=== PATIENT | male | born 1990 | race Caucasian/White ===

== ENCOUNTER 2016-08-15 06:41 | Emergency (ER) | payer OTHER, BC ==
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
[2016-08-15] MEDS ORDERED: IBUPROFEN 600 MG TAB As Ordered ONE (08:28)
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
== END 2016-08-15 08:40 | disposition home or self-care (01) ==
LOC: M ED 06:41
DX: S63.592A Other specified sprain of left wrist, initial encounter (principal); S00.33XA Contusion of nose, initial encounter; R93.6 Abnormal findings on diagnostic imaging of limbs; V47.5XXA Car driver injured in collision with fixed or stationary object in traffic accident, initial encounter; Y92.410 Unspecified street and highway as the place of occurrence of the external cause; F90.9 Attention-deficit hyperactivity disorder, unspecified type; M19.90 Unspecified osteoarthritis, unspecified site; Z79.899 Other long term (current) drug therapy

== ENCOUNTER 2016-09-06 08:52 | Emergency (ER) | payer BC, OTHER ==
[2016-09-06 11:07] LABS: BASO % 0.6 % (0.0-1.0); EOS # 0.1 K/mm3 (0.0-0.50); EOS % 2.1 % (0.0-3.0); LARGE UNSTAINED CELL # 0.2 K/mm3 (0.0-0.4); LARGE UNSTAINED CELL % 2.6 % (0.0-4.0); LYMPH # 1.1 K/mm3 (1.5-6.5); LYMPH % 19.7 % (24.0-44.0); MEAN CORPUSCULAR HEMOGLOBIN 31.5 pg (27.0-33.0); MEAN CORPUSCULAR HGB CONC 33.8 g/dl (32.0-36.5); MEAN CORPUSCULAR VOLUME 93.2 fl (80.0-96.0); MONO # 0.4 K/mm3 (0.0-0.8); MONO % 7.4 % (0.0-5.0); NEUTROPHILS # 3.9 K/mm3 (1.8-7.7); NEUTROPHILS % 67.6 % (36.0-66.0); PLATELET COUNT, AUTOMATED 282 k/mm3 (150-450); RED CELL DISTRIBUTION WIDTH 12.4 % (11.5-14.5); WHITE BLOOD COUNT 5.8 K/mm3 (4.0-10.0)
[2016-09-06 11:45] LABS: ALBUMIN 4.4 GM/DL (3.2-5.2); ALBUMIN/GLOBULIN RATIO 1.13 (1.00-1.93); ALKALINE PHOSPHATASE 81 U/L (45-117); ALT/SGPT 34 U/L (12-78); ANION GAP 5 MEQ/L (8-16); AST/SGOT 19 U/L (15-37); BILIRUBIN,DIRECT 0.1 MG/DL (0.0-0.2); BILIRUBIN,TOTAL 0.6 MG/DL (0.2-1.0); BLOOD UREA NITROGEN 18 MG/DL (7-18); CALCIUM LEVEL 9.3 MG/DL (8.5-10.1); CARBON DIOXIDE LEVEL 33 MEQ/L (21-32); CHLORIDE LEVEL 104 MEQ/L (98-107); CREATININE FOR GFR 0.86 MG/DL (0.70-1.30); GLOMERULAR FILTRATION RATE > 60.0 (>60); GLUCOSE, FASTING 87 MG/DL (70-105); POTASSIUM SERUM 3.9 MEQ/L (3.5-5.1); SODIUM LEVEL 142 MEQ/L (136-145); TOTAL PROTEIN 8.3 GM/DL (6.4-8.2)
[2016-09-06] MEDS ORDERED: ISOVUE-370 76% 100ML VIAL (Q9967) As Ordered ONE (11:47)
--- NOTE | 2016-09-06 12:14 | REP ---
CT abdomen and pelvis with IV contrast, without bowel contrast: There are no comparisons. The visualized lung nicole are unremarkable. The hepatic parenchyma, gallbladder, pancreas and spleen are homogeneous, normal size and unremarkable. The adrenals, kidneys and abdominal aorta are unremarkable. There is no bowel distension or obstruction . The mesentery is unremarkable. Pelvis: The appendix is distended measuring up to 9 mm diameter. There is a small appendicolith near the appendiceal tip. However, there is no periappendiceal inflammation or abscess. The finding is nonspecific but may represent ensuing appendicitis. There is wall thickening of the descending colon and sigmoid colon compatible with colitis. There is no pericolonic abscess or inflammation. There is no ascites or adenopathy. The bladder is unremarkable. Impression: Distended appendix and appendicolith. There is no periappendiceal inflammation or abscess. The findings are nonspecific but may represent ensuing appendicitis. Colitis of the descending colon and sigmoid colon. No ascites or adenopathy. Signed by Jean Pal MD 09/06/2016 12:06 P
--- NOTE | 2016-09-06 13:12 | EDDOCDS ---
Physician Documentation [facility] Name: Ari Aguilera Age: 26 yrs Sex: Male : 1990 Arrival Date: 09/06/2016 Time: 08:52 Bed I2 / M2 Private MD: Disposition: 09/06/16 13:00 Discharged to Home/Self Care. Impression: Left sided colitis with rectal bleeding - DESCENDING/SIGMOID COLON. - Condition is Stable. - Discharge Instructions: Gastrointestinal Bleeding. - Prescriptions for Cipro 500 mg Oral Tablet - take 1 tablet by ORAL route every 12 hours for 10 days; 20 tablet. Flagyl 500 mg Oral Tablet - take 1 tablet by ORAL route every 12 hours for 10 days; 20 tablet. - Medication Reconciliation, Local Pharmacy Hours form. - Follow up: Emergency Department; When: As needed; Reason: Worsening of conditions. Follow up: Jean Vallecillo DO; When: Call to arrange an appointment; Reason: If symptoms return, Recheck today's complaints, Worsening of conditions, Continuance of care, To establish care. - Problem is new. - Symptoms are unchanged. - Notes: PLEASE CALL DR. VALLECILLO'S OFFICE TO FOLLOW UP, ONLY IF YOUR SYMPTOMS CONTINUE OR ARE WORSENING. Historical: - Allergies: No known drug Allergies; - Home Meds: 1. Concerta 54 mg Oral tr24 1 tab once daily 2. Carlota 180 mg Oral tab 1 tab once daily 3. Aleve 220 mg Oral tab as needed (Last dose: 09/03/2016) - PMHx: ADHD; Arthritis; - PSHx: none; - Social history: Smoking status: Patient states was never smoker of tobacco. No barriers to communication noted, The patient speaks fluent Telugu, Speaks appropriately for age. - Family history: Not pertinent. - : The pt / caregiver states he / she is not on anticoagulants. Home medication list is obtained from the patient. - Exposure Risk Screening:: None identified. Vital Signs: 09/06 09:18 BP 144 / 84; Pulse 80; Resp 16; Temp 98.7; Pulse Ox 99% ; Weight 105.23 kg / 231.99 hs1 lbs; Height 5 ft. 7 in. (170.18 cm); Pain 0/10; 13:05 BP 127 / 69; Pulse 92; Resp 18; Temp 98.9(O); Pulse Ox 100% ; Pain 0/10; nb2 09:18 Body Mass Index 36.34 (105.23 kg, 170.18 cm) hs1 MDM: 10:28 Financial registration complete. lg 10:35 IV Saline Lock ordered. dt4 10:36 CT ABD & PELVIS: IV Contrast Only Ordered. EDMS 10:36 CBC with Diff Ordered. EDMS 10:36 Basic Metabolic Profile Ordered. EDMS 10:36 Liver Profile Ordered. EDMS 10:36 Urinalysis Ordered. EDMS 10:36 PT/INR Ordered. EDMS 10:36 PTT Ordered. EDMS 10:52 [facility] Payment Agreement was scanned into [employer] and attached to record. lg Signatures: Dispatcher [employer] EDYaneli Dave Reg Reg lg Khadra Pa,RN RN kr3 Esperanza Mcpherson RN RN hs1 Kathy Mann PA-C PA-C dt4 The chart was reviewed and I authenticate all verbal orders and agree with the evaluation and treatment provided.Attachments: 10:52 [facility] Payment Agreement lg MTDD
--- NOTE | 2016-09-06 13:12 | EDDOCDS ---
Nurse's Notes [facility] Name: Ari Aguilera Age: 26 yrs Sex: Male : 1990 Arrival Date: 09/06/2016 Time: 08:52 Bed I2 / M2 Private MD: Diagnosis: Left sided colitis with rectal bleeding-DESCENDING/SIGMOID COLON Presentation: 09/06 09:19 Presenting complaint: Patient states: 2 days ago noticed bright red blood every time he hs1 has a bowel movement and every time he wiped. Patient states today blood lessened. Adult Sepsis Screening: The patient does not have new or worsening altered mentation. Patient's respiratory rate is less than 22. Systolic blood pressure is greater than 100. Patient has a qSOFA score of 0- Negative Sepsis Screen. Suicide/Homicide risk assessment- the patient denies having any suicidal and/or homicidal ideations and does not present with any other emotional, behavioral or mental health complaints. Status: Patient is not a counseling services director or dependent. Transition of care: patient was not received from another setting of care. 09:19 Acuity: VARGHESE Level 3 hs1 09:19 Method Of Arrival: Walkin/Carried/Asstd hs1 Triage Assessment: 09:20 General: Appears in no apparent distress, comfortable, Behavior is appropriate for age, hs1 cooperative. Pain: Denies pain. HIV screening NA for this visit Offered previously. Respiratory: No deficits noted. GI: Reports bloody stools. GI: Reports. Derm: Skin is pink, warm & dry. normal. Historical: - Allergies: No known drug Allergies; - Home Meds: 1. Concerta 54 mg Oral tr24 1 tab once daily 2. Carlota 180 mg Oral tab 1 tab once daily 3. Aleve 220 mg Oral tab as needed (Last dose: 09/03/2016) - PMHx: ADHD; Arthritis; - PSHx: none; - Social history: Smoking status: Patient states was never smoker of tobacco. No barriers to communication noted, The patient speaks fluent Persian, Speaks appropriately for age. - Family history: Not pertinent. - : The pt / caregiver states he / she is not on anticoagulants. Home medication list is obtained from the patient. - Exposure Risk Screening:: None identified. Screenin:48 Screening information is obtained from the patient. Fall risk: No risks identified. hs1 Assistance ADL's: requires no assistance with activities of daily living. Abuse/DV Screen: The patient / caregiver reports he/she is: not in a situation that causes fear, pain or injury. Nutritional screening: No deficits noted. Advance Directives: There is no active DNR order. home support is adequate. Assessment: 10:49 General: Appears in no apparent distress, Behavior is appropriate for age, cooperative. hs1 Pain: Denies pain. Respiratory: No deficits noted. GI: Denies nausea, vomiting. 11:58 Reassessment: Patient appears in no apparent distress at this time. Neurological: No kr3 deficits noted. Respiratory: Respiratory effort is even, unlabored. 12:31 General: Appears in no apparent distress, Behavior is cooperative, resting comfortable rs3 on stretcher. denies of pain/distress. waiting for test results. breathes easy. 13:11 Reassessment: Patient appears in no apparent distress at this time. Patient denies pain kr3 at this time. Neurological: No deficits noted. Respiratory: Respiratory effort is even, unlabored. GI: Denies nausea, vomiting. Derm: Skin is normal. Vital Signs: 09:18 BP 144 / 84; Pulse 80; Resp 16; Temp 98.7; Pulse Ox 99% ; Weight 105.23 kg; Height 5 hs1 ft. 7 in. (170.18 cm); Pain 0/10; 13:05 BP 127 / 69; Pulse 92; Resp 18; Temp 98.9(O); Pulse Ox 100% ; Pain 0/10; nb2 09:18 Body Mass Index 36.34 (105.23 kg, 170.18 cm) [facility] Vitals: 09:18 Log In Time: September 06, 2016 at 08:55. hs1 ED Course: 08:54 Patient visited by Isi Kline. jp5 08:54 Patient moved to Waiting jp5 09:20 Triage Initiated hs1 09:21 Patient moved to Pre RCE hs1 09:53 Patient moved to Triage 3 dwg 10:13 Kathy Mann PA-C is PHCP. dt4 10:13 Rubi Khan MD is Attending Physician. dt4 10:13 Patient visited by Kathy Mann PA-C. dt4 10:37 Patient moved to I2 / M2 dwg 10:47 PTT Sent. nb2 10:47 PT/INR Sent. nb2 10:47 Urinalysis Sent. nb2 10:47 Liver Profile Sent. nb2 10:47 Basic Metabolic Profile Sent. nb2 10:47 CBC with Diff Sent. nb2 10:48 Patient visited by Esperanza Mcpherson RN. hs1 10:49 Inserted saline lock: 20 gauge in right antecubital area and blood collected. The hs1 patient tolerated the procedure well. 10:52 [facility] Payment Agreement was scanned into [employer] and attached to record. lg 11:48 Patient visited by Khadra Pa,DALLIN. kr3 11:[address] kr3 11:58 The patient / caregiver is instructed regarding the plan of care and ED course. Patient kr3 has correct armband on for positive identification. Placed in gown. Bed in low position. Call light in reach. Side rails up X 1. 12:00 Patient moved to I2 / M2 kr3 12:31 Patient visited by Luciana Rolon RN. rs3 12:31 CT ABD & PELVIS: IV Contrast Only Returned. EDMS 12:59 Jean Vallecillo DO is Referral Physician. dt4 13:05 Patient visited by Sarah Woods. nb2 13:10 Discontinued lock intact, bleeding controlled, pressure dressing applied, No kr3 redness/swelling at site. No procedures done that require assistance. Order Results: Lab Order: CBC with Diff; SPEC'M 09/06/16 10:46 Test: WHITE BLOOD COUNT; Value: 5.8; Range: 4.0-10.0; Units: K/mm3; Status: F Test: RED BLOOD COUNT; Value: 5.37; Range: 4.30-6.10; Units: M/mm3; Status: F Test: HEMOGLOBIN; Value: 16.9; Range: 14.0-18.0; Units: g/dl; Status: F Test: HEMATOCRIT; Value: 50.1; Range: 42.0-52.0; Units: %; Status: F Test: MEAN CORPUSCULAR VOLUME; Value: 93.2; Range: 80.0-96.0; Units: fl; Status: F Test: MEAN CORPUSCULAR HEMOGLOBIN; Value: 31.5; Range: 27.0-33.0; Units: pg; Status: F Test: MEAN CORPUSCULAR HGB CONC; Value: 33.8; Range: 32.0-36.5; Units: g/dl; Status: F Test: RED CELL DISTRIBUTION WIDTH; Value: 12.4; Range: 11.5-14.5; Units: %; Status: F Test: PLATELET COUNT, AUTOMATED; Value: 282; Range: 150-450; Units: k/mm3; Status: F Test: NEUTROPHILS %; Value: 67.6; Range: 36.0-66.0; Abnormal: Above high normal; Units: %; Status: F Test: LYMPH %; Value: 19.7; Range: 24.0-44.0; Abnormal: Below low normal; Units: %; Status: F Test: MONO %; Value: 7.4; Range: 0.0-5.0; Abnormal: Above high normal; Units: %; Status: F Test: EOS %; Value: 2.1; Range: 0.0-3.0; Units: %; Status: F Test: BASO %; Value: 0.6; Range: 0.0-1.0; Units: %; Status: F Test: LARGE UNSTAINED CELL %; Value: 2.6; Range: 0.0-4.0; Units: %; Status: F Test: NEUTROPHILS #; Value: 3.9; Range: 1.8-7.7; Units: K/mm3; Status: F Test: LYMPH #; Value: 1.1; Range: 1.5-6.5; Abnormal: Below low normal; Units: K/mm3; Status: F Test: MONO #; Value: 0.4; Range: 0.0-0.8; Units: K/mm3; Status: F Test: EOS #; Value: 0.1; Range: 0.0-0.50; Units: K/mm3; Status: F Test: BASO #; Value: 0.0; Range: 0.0-0.2; Units: K/mm3; Status: F Test: LARGE UNSTAINED CELL #; Value: 0.2; Range: 0.0-0.4; Units: K/mm3; Status: F Lab Order: Basic Metabolic Profile; [facility]' 09/06/16 10:46 Test: GLUCOSE, FASTING; Value: 87; Range: 70-105; Units: MG/DL; Status: F Test: BLOOD UREA NITROGEN; Value: 18; Range: 7-18; Units: MG/DL; Status: F Test: CREATININE FOR GFR; Value: 0.86; Range: 0.70-1.30; Units: MG/DL; Status: F Test: GLOMERULAR FILTRATION RATE; Value: > 60.0; Range: >60; Status: F Test: SODIUM LEVEL; Value: 142; Range: 136-145; Units: MEQ/L; Status: F Test: POTASSIUM SERUM; Value: 3.9; Range: 3.5-5.1; Units: MEQ/L; Status: F Test: CHLORIDE LEVEL; Value: 104; Range: 98-107; Units: MEQ/L; Status: F Test: CARBON DIOXIDE LEVEL; Value: 33; Range: 21-32; Abnormal: Above high normal; Units: MEQ/L; Status: F Test: ANION GAP; Value: 5; Range: 8-16; Abnormal: Below low normal; Units: MEQ/L; Status: F Test: CALCIUM LEVEL; Value: 9.3; Range: 8.5-10.1; Units: MG/DL; Status: F Test Note: ; Units are mL/min/1.73 m2 Chronic Kidney Disease Staging per NKF: Stage I & II GFR >=60 Normal to Mildly Decreased Stage III GFR 30-59 Moderately Decreased Stage IV GFR 15-29 Severely Decreased Stage V GFR <15 Very Little GFR Left ESRD GFR <15 on [employer] Lab Order: Liver Profile; [facility]' 09/06/16 10:46 Test: AST/SGOT; Value: 19; Range: 15-37; Units: U/L; Status: F Test: ALT/SGPT; Value: 34; Range: 12-78; Units: U/L; Status: F Test: ALKALINE PHOSPHATASE; Value: 81; Range: 45-117; Units: U/L; Status: F Test: BILIRUBIN,TOTAL; Value: 0.6; Range: 0.2-1.0; Units: MG/DL; Status: F Test: BILIRUBIN,DIRECT; Value: 0.1; Range: 0.0-0.2; Units: MG/DL; Status: F Test: TOTAL PROTEIN; Value: 8.3; Range: 6.4-8.2; Abnormal: Above high normal; Units: GM/DL; Status: F Test: ALBUMIN; Value: 4.4; Range: 3.2-5.2; Units: GM/DL; Status: F Test: ALBUMIN/GLOBULIN RATIO; Value: 1.13; Range: 1.00-1.93; Status: F Lab Order: Urinalysis; SPEC'M 09/06/16 10:40 Test: APPEARANCE, URINE; Value: CLEAR; Range: CLEAR; Status: F Test: COLOR, URINE; Value: YELLOW; Range: YELLOW; Status: F Test: PH,URINE; Value: 7.0; Range: 5.0-9.0; Units: UNITS; Status: F Test: SPECIFIC GRAVITY URINE AUTO; Value: 1.020; Range: 1.002-1.035; Status: F Test: PROTEIN, URINE AUTO; Value: NEGATIVE; Range: NEGATIVE; Units: mg/dL; Status: F Test: GLUCOSE, URINE (UA) AUTO; Value: NEGATIVE; Range: NEGATIVE; Units: mg/dL; Status: F Test: KETONE, URINE AUTO; Value: NEGATIVE; Range: NEGATIVE; Units: mg/dL; Status: F Test: UROBILINOGEN, URINE AUTO; Value: 0.2; Range: 0.0-2.0; Units: mg/dL; Status: F Test: BILIRUBIN, URINE AUTO; Value: NEGATIVE; Range: NEGATIVE; Status: F Test: NITRITE, URINE AUTO; Value: NEGATIVE; Range: NEGATIVE; Status: F Test: LEUKOCYTE ESTERASE, URINE AUTO; Value: NEGATIVE; Range: NEGATIVE; Status: F Test: BLOOD, URINE BLOOD; Value: 1+; Range: NEGATIVE; Abnormal: Above high normal; Status: F Test: WBC, URINE AUTO; Value: 0; Range: 0-3; Units: /HPF; Status: F Test: RBC, URINE AUTO; Value: 5; Range: 0-3; Abnormal: Above high normal; Units: /HPF; Status: F Test: BACTERIA, URINE AUTO; Value: NEGATIVE; Range: NEGATIVE; Status: F Test: SQUAMOUS EPITHELIAL CELL UR AU; Value: 0; Range: 0-6; Units: /HPF; Status: F Test: MUCUS, URINE; Value: SMALL; Range: NEGATIVE; Status: F Test: HYALINE CAST, URINE AUTO; Value: 0; Range: 0-1; Units: /LPF; Status: F Lab Order: PT/INR; SPEC'M 09/06/16 10:46 Test: PROTHROMBIN TIME; Value: 13.3; Range: 12.3-14.5; Units: SECONDS; Status: F Test: INR; Value: 1.00; Status: F Test Note: ; THERAPUTIC HUMAN INR VALUES INDICATIONS NORMAL RANGES PROPHYLAXIS/TREATMENT OF: VENOUS THROMBOSIS 2.0-3.0 PULMONARY EMBOLISM 2.0-3.0 PREVENTION OF SYSTEMIC EMBOLISM FROM: TISSUE HEART VALVES 2.0-3.0 ACUTE MYOCARDIAL INFARCTION 2.0-3.0 VALVULAR HEART DISEASE 2.0-3.0 ATRIAL FIBRILLATION 2.0-3.0 MECHANICAL VALVES(HIGH RISK) 2.5-3.5 RECURRENT MYOCARDIAL INFARCTION 2.5-3.5 Lab Order: PTT; SPEC'M 09/06/16 10:46 Test: PARTIAL THROMBOPLASTIN TIME; Value: 26.0; Range: 26.6-37.1; Abnormal: Below low normal; Units: SECONDS; Status: F Radiology Order: CT ABD & PELVIS: IV Contrast Only Test: CT ABD & PELVIS: IV Contrast Only REASON FOR EXAMINATION: rectal bleeding; CT abdomen and pelvis with IV contrast, without bowel contrast:; ; There are no comparisons.; ; The visualized lung nicole are unremarkable.; ; The hepatic parenchyma, gallbladder, pancreas and spleen are homogeneous, normal; size and unremarkable.; ; The adrenals, kidneys and abdominal aorta are unremarkable.; ; There is no bowel distension or obstruction . The mesentery is unremarkable.; ; Pelvis:; ; The appendix is distended measuring up to 9 mm diameter. There is a small; appendicolith near the appendiceal tip. However, there is no periappendiceal; inflammation or abscess. The finding is nonspecific but may represent ensuing; appendicitis.; ; There is wall thickening of the descending colon and sigmoid colon compatible; with colitis. There is no pericolonic abscess or inflammation.; ; There is no ascites or adenopathy. The bladder is unremarkable.; ; Impression:; ; Distended appendix and appendicolith. There is no periappendiceal inflammation; or abscess. The findings are nonspecific but may represent ensuing; appendicitis.; ; Colitis of the descending colon and sigmoid colon.; ; No ascites or adenopathy.; ; ; ; ; Signed by; Jean Pal MD 09/06/2016 12:06 P; Outcome: 11:58 CT Study completed. kr3 13:00 Discharge ordered by Provider. dt4 13:10 Discharge Assessment: patient administered narcotics - no. The following High Risk kr3 Discharge criteria are identified: None. Discharged to home ambulatory, with family. Condition: stable. Discharge instructions given to patient, Instructed on discharge instructions, follow up and referral plans. medication usage, no drinking with medication, Demonstrated understanding of instructions, medications, Pt was receptive of discharge instructions/ teaching. Prescriptions given X 2. Property sent home with patient. 13:11 Patient left the ED. kr3 Signatures: Dispatcher [employer] EDMS Jean Lacey, RN RN Yaneli Garcia Reg Reg lg Robie, Kathleen,RN RN kr3 Luciana RolonRN RN rs3 Esperanza Mcpherson RN RN hs1 Kathy Mann PA-C PA-C dt4 Isi Kline jp5 Sarah Woods2 PAOLO
--- NOTE | 2016-09-08 14:12 | EDDOCDS ---
Nurse's Notes [facility] Name: Ari Aguilera Age: 26 yrs Sex: Male : 1990 Arrival Date: 09/06/2016 Time: 08:52 Bed I2 / M2 Private MD: Diagnosis: Left sided colitis with rectal bleeding-DESCENDING/SIGMOID COLON Presentation: 09/06 09:19 Presenting complaint: Patient states: 2 days ago noticed bright red blood every time he hs1 has a bowel movement and every time he wiped. Patient states today blood lessened. Adult Sepsis Screening: The patient does not have new or worsening altered mentation. Patient's respiratory rate is less than 22. Systolic blood pressure is greater than 100. Patient has a qSOFA score of 0- Negative Sepsis Screen. Suicide/Homicide risk assessment- the patient denies having any suicidal and/or homicidal ideations and does not present with any other emotional, behavioral or mental health complaints. Status: Patient is not a rural service engineer or dependent. Transition of care: patient was not received from another setting of care. 09:19 Acuity: VARGHESE Level 3 hs1 09:19 Method Of Arrival: Walkin/Carried/Asstd hs1 Triage Assessment: 09:20 General: Appears in no apparent distress, comfortable, Behavior is appropriate for age, hs1 cooperative. Pain: Denies pain. HIV screening NA for this visit Offered previously. Respiratory: No deficits noted. GI: Reports bloody stools. GI: Reports. Derm: Skin is pink, warm & dry. normal. Historical: - Allergies: No known drug Allergies; - Home Meds: 1. Concerta 54 mg Oral tr24 1 tab once daily 2. Carlota 180 mg Oral tab 1 tab once daily 3. Aleve 220 mg Oral tab as needed (Last dose: 09/03/2016) - PMHx: ADHD; Arthritis; - PSHx: none; - Social history: Smoking status: Patient states was never smoker of tobacco. No barriers to communication noted, The patient speaks fluent Pashto, Speaks appropriately for age. - Family history: Not pertinent. - : The pt / caregiver states he / she is not on anticoagulants. Home medication list is obtained from the patient. - Exposure Risk Screening:: None identified. Screenin:48 Screening information is obtained from the patient. Fall risk: No risks identified. hs1 Assistance ADL's: requires no assistance with activities of daily living. Abuse/DV Screen: The patient / caregiver reports he/she is: not in a situation that causes fear, pain or injury. Nutritional screening: No deficits noted. Advance Directives: There is no active DNR order. home support is adequate. Assessment: 10:49 General: Appears in no apparent distress, Behavior is appropriate for age, cooperative. hs1 Pain: Denies pain. Respiratory: No deficits noted. GI: Denies nausea, vomiting. 11:58 Reassessment: Patient appears in no apparent distress at this time. Neurological: No kr3 deficits noted. Respiratory: Respiratory effort is even, unlabored. 12:31 General: Appears in no apparent distress, Behavior is cooperative, resting comfortable rs3 on stretcher. denies of pain/distress. waiting for test results. breathes easy. 13:11 Reassessment: Patient appears in no apparent distress at this time. Patient denies pain kr3 at this time. Neurological: No deficits noted. Respiratory: Respiratory effort is even, unlabored. GI: Denies nausea, vomiting. Derm: Skin is normal. Vital Signs: 09:18 BP 144 / 84; Pulse 80; Resp 16; Temp 98.7; Pulse Ox 99% ; Weight 105.23 kg; Height 5 hs1 ft. 7 in. (170.18 cm); Pain 0/10; 13:05 BP 127 / 69; Pulse 92; Resp 18; Temp 98.9(O); Pulse Ox 100% ; Pain 0/10; nb2 09:18 Body Mass Index 36.34 (105.23 kg, 170.18 cm) [facility] Vitals: 09:18 Log In Time: September 06, 2016 at 08:55. hs1 ED Course: 08:54 Patient visited by Isi Kline. jp5 08:54 Patient moved to Waiting jp5 09:20 Triage Initiated hs1 09:21 Patient moved to Pre RCE hs1 09:53 Patient moved to Triage 3 dwg 10:13 Kathy Mann PA-C is PHCP. dt4 10:13 Rubi Khan MD is Attending Physician. dt4 10:13 Patient visited by Kathy Mann PA-C. dt4 10:37 Patient moved to I2 / M2 dwg 10:47 PTT Sent. nb2 10:47 PT/INR Sent. nb2 10:47 Urinalysis Sent. nb2 10:47 Liver Profile Sent. nb2 10:47 Basic Metabolic Profile Sent. nb2 10:47 CBC with Diff Sent. nb2 10:48 Patient visited by Esperanza Mcpherson, DALLIN. hs1 10:49 Inserted saline lock: 20 gauge in right antecubital area and blood collected. The hs1 patient tolerated the procedure well. 10:52 [facility] [place] Payment Agreement was scanned into [employer] and attached to record. lg 11:48 Patient visited by Khadra Pa,DALLIN. kr3 11:[address] kr3 11:58 The patient / caregiver is instructed regarding the plan of care and ED course. Patient kr3 has correct armband on for positive identification. Placed in gown. Bed in low position. Call light in reach. Side rails up X 1. 12:00 Patient moved to I2 / M2 kr3 12:31 Patient visited by Luciana Rolon RN. rs3 12:31 CT ABD & PELVIS: IV Contrast Only Returned. EDMS 12:59 Jean Vallecillo DO is Referral Physician. dt4 13:05 Patient visited by Sarah Woods. nb2 13:10 Discontinued lock intact, bleeding controlled, pressure dressing applied, No kr3 redness/swelling at site. No procedures done that require assistance. 14:58 T-Sheet-- Draft Copy was scanned into [employer] and attached to record. gb 14:59 Radiology Report was scanned into [employer] and attached to record. gb Order Results: Lab Order: CBC with Diff; SPEC'M 09/06/16 10:46 Test: WHITE BLOOD COUNT; Value: 5.8; Range: 4.0-10.0; Units: K/mm3; Status: F Test: RED BLOOD COUNT; Value: 5.37; Range: 4.30-6.10; Units: M/mm3; Status: F Test: HEMOGLOBIN; Value: 16.9; Range: 14.0-18.0; Units: g/dl; Status: F Test: HEMATOCRIT; Value: 50.1; Range: 42.0-52.0; Units: %; Status: F Test: MEAN CORPUSCULAR VOLUME; Value: 93.2; Range: 80.0-96.0; Units: fl; Status: F Test: MEAN CORPUSCULAR HEMOGLOBIN; Value: 31.5; Range: 27.0-33.0; Units: pg; Status: F Test: MEAN CORPUSCULAR HGB CONC; Value: 33.8; Range: 32.0-36.5; Units: g/dl; Status: F Test: RED CELL DISTRIBUTION WIDTH; Value: 12.4; Range: 11.5-14.5; Units: %; Status: F Test: PLATELET COUNT, AUTOMATED; Value: 282; Range: 150-450; Units: k/mm3; Status: F Test: NEUTROPHILS %; Value: 67.6; Range: 36.0-66.0; Abnormal: Above high normal; Units: %; Status: F Test: LYMPH %; Value: 19.7; Range: 24.0-44.0; Abnormal: Below low normal; Units: %; Status: F Test: MONO %; Value: 7.4; Range: 0.0-5.0; Abnormal: Above high normal; Units: %; Status: F Test: EOS %; Value: 2.1; Range: 0.0-3.0; Units: %; Status: F Test: BASO %; Value: 0.6; Range: 0.0-1.0; Units: %; Status: F Test: LARGE UNSTAINED CELL %; Value: 2.6; Range: 0.0-4.0; Units: %; Status: F Test: NEUTROPHILS #; Value: 3.9; Range: 1.8-7.7; Units: K/mm3; Status: F Test: LYMPH #; Value: 1.1; Range: 1.5-6.5; Abnormal: Below low normal; Units: K/mm3; Status: F Test: MONO #; Value: 0.4; Range: 0.0-0.8; Units: K/mm3; Status: F Test: EOS #; Value: 0.1; Range: 0.0-0.50; Units: K/mm3; Status: F Test: BASO #; Value: 0.0; Range: 0.0-0.2; Units: K/mm3; Status: F Test: LARGE UNSTAINED CELL #; Value: 0.2; Range: 0.0-0.4; Units: K/mm3; Status: F Lab Order: Basic Metabolic Profile; SPEC'M 09/06/16 10:46 Test: GLUCOSE, FASTING; Value: 87; Range: 70-105; Units: MG/DL; Status: F Test: BLOOD UREA NITROGEN; Value: 18; Range: 7-18; Units: MG/DL; Status: F Test: CREATININE FOR GFR; Value: 0.86; Range: 0.70-1.30; Units: MG/DL; Status: F Test: GLOMERULAR FILTRATION RATE; Value: > 60.0; Range: >60; Status: F Test: SODIUM LEVEL; Value: 142; Range: 136-145; Units: MEQ/L; Status: F Test: POTASSIUM SERUM; Value: 3.9; Range: 3.5-5.1; Units: MEQ/L; Status: F Test: CHLORIDE LEVEL; Value: 104; Range: 98-107; Units: MEQ/L; Status: F Test: CARBON DIOXIDE LEVEL; Value: 33; Range: 21-32; Abnormal: Above high normal; Units: MEQ/L; Status: F Test: ANION GAP; Value: 5; Range: 8-16; Abnormal: Below low normal; Units: MEQ/L; Status: F Test: CALCIUM LEVEL; Value: 9.3; Range: 8.5-10.1; Units: MG/DL; Status: F Test Note: ; Units are mL/min/1.73 m2 Chronic Kidney Disease Staging per NKF: Stage I & II GFR >=60 Normal to Mildly Decreased Stage III GFR 30-59 Moderately Decreased Stage IV GFR 15-29 Severely Decreased Stage V GFR <15 Very Little GFR Left ESRD GFR <15 on 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 Lab Order: Liver Profile; SPEC'M 09/06/16 10:46 Test: AST/SGOT; Value: 19; Range: 15-37; Units: U/L; Status: F Test: ALT/SGPT; Value: 34; Range: 12-78; Units: U/L; Status: F Test: ALKALINE PHOSPHATASE; Value: 81; Range: 45-117; Units: U/L; Status: F Test: BILIRUBIN,TOTAL; Value: 0.6; Range: 0.2-1.0; Units: MG/DL; Status: F Test: BILIRUBIN,DIRECT; Value: 0.1; Range: 0.0-0.2; Units: MG/DL; Status: F Test: TOTAL PROTEIN; Value: 8.3; Range: 6.4-8.2; Abnormal: Above high normal; Units: GM/DL; Status: F Test: ALBUMIN; Value: 4.4; Range: 3.2-5.2; Units: GM/DL; Status: F Test: ALBUMIN/GLOBULIN RATIO; Value: 1.13; Range: 1.00-1.93; Status: F Lab Order: Urinalysis; SPEC'M 09/06/16 10:40 Test: APPEARANCE, URINE; Value: CLEAR; Range: CLEAR; Status: F Test: COLOR, URINE; Value: YELLOW; Range: YELLOW; Status: F Test: PH,URINE; Value: 7.0; Range: 5.0-9.0; Units: UNITS; Status: F Test: SPECIFIC GRAVITY URINE AUTO; Value: 1.020; Range: 1.002-1.035; Status: F Test: PROTEIN, URINE AUTO; Value: NEGATIVE; Range: NEGATIVE; Units: mg/dL; Status: F Test: GLUCOSE, URINE (UA) AUTO; Value: NEGATIVE; Range: NEGATIVE; Units: mg/dL; Status: F Test: KETONE, URINE AUTO; Value: NEGATIVE; Range: NEGATIVE; Units: mg/dL; Status: F Test: UROBILINOGEN, URINE AUTO; Value: 0.2; Range: 0.0-2.0; Units: mg/dL; Status: F Test: BILIRUBIN, URINE AUTO; Value: NEGATIVE; Range: NEGATIVE; Status: F Test: NITRITE, URINE AUTO; Value: NEGATIVE; Range: NEGATIVE; Status: F Test: LEUKOCYTE ESTERASE, URINE AUTO; Value: NEGATIVE; Range: NEGATIVE; Status: F Test: BLOOD, URINE BLOOD; Value: 1+; Range: NEGATIVE; Abnormal: Above high normal; Status: F Test: WBC, URINE AUTO; Value: 0; Range: 0-3; Units: /HPF; Status: F Test: RBC, URINE AUTO; Value: 5; Range: 0-3; Abnormal: Above high normal; Units: /HPF; Status: F Test: BACTERIA, URINE AUTO; Value: NEGATIVE; Range: NEGATIVE; Status: F Test: SQUAMOUS EPITHELIAL CELL UR AU; Value: 0; Range: 0-6; Units: /HPF; Status: F Test: MUCUS, URINE; Value: SMALL; Range: NEGATIVE; Status: F Test: HYALINE CAST, URINE AUTO; Value: 0; Range: 0-1; Units: /LPF; Status: F Lab Order: PT/INR; SPEC'M 09/06/16 10:46 Test: PROTHROMBIN TIME; Value: 13.3; Range: 12.3-14.5; Units: SECONDS; Status: F Test: INR; Value: 1.00; Status: F Test Note: ; THERAPUTIC HUMAN INR VALUES INDICATIONS NORMAL RANGES PROPHYLAXIS/TREATMENT OF: VENOUS THROMBOSIS 2.0-3.0 PULMONARY EMBOLISM 2.0-3.0 PREVENTION OF SYSTEMIC EMBOLISM FROM: TISSUE HEART VALVES 2.0-3.0 ACUTE MYOCARDIAL INFARCTION 2.0-3.0 VALVULAR HEART DISEASE 2.0-3.0 ATRIAL FIBRILLATION 2.0-3.0 MECHANICAL VALVES(HIGH RISK) 2.5-3.5 RECURRENT MYOCARDIAL INFARCTION 2.5-3.5 Lab Order: PTT; SPEC'M 09/06/16 10:46 Test: PARTIAL THROMBOPLASTIN TIME; Value: 26.0; Range: 26.6-37.1; Abnormal: Below low normal; Units: SECONDS; Status: F Radiology Order: CT ABD & PELVIS: IV Contrast Only Test: CT ABD & PELVIS: IV Contrast Only REASON FOR EXAMINATION: rectal bleeding; CT abdomen and pelvis with IV contrast, without bowel contrast:; ; There are no comparisons.; ; The visualized lung nicole are unremarkable.; ; The hepatic parenchyma, gallbladder, pancreas and spleen are homogeneous, normal; size and unremarkable.; ; The adrenals, kidneys and abdominal aorta are unremarkable.; ; There is no bowel distension or obstruction . The mesentery is unremarkable.; ; Pelvis:; ; The appendix is distended measuring up to 9 mm diameter. There is a small; appendicolith near the appendiceal tip. However, there is no periappendiceal; inflammation or abscess. The finding is nonspecific but may represent ensuing; appendicitis.; ; There is wall thickening of the descending colon and sigmoid colon compatible; with colitis. There is no pericolonic abscess or inflammation.; ; There is no ascites or adenopathy. The bladder is unremarkable.; ; Impression:; ; Distended appendix and appendicolith. There is no periappendiceal inflammation; or abscess. The findings are nonspecific but may represent ensuing; appendicitis.; ; Colitis of the descending colon and sigmoid colon.; ; No ascites or adenopathy.; ; ; ; ; Signed by; Jean Pal MD 09/06/2016 12:06 P; Outcome: 11:58 CT Study completed. kr3 13:00 Discharge ordered by Provider. dt4 13:10 Discharge Assessment: patient administered narcotics - no. The following High Risk kr3 Discharge criteria are identified: None. Discharged to home ambulatory, with family. Condition: stable. Discharge instructions given to patient, Instructed on discharge instructions, follow up and referral plans. medication usage, no drinking with medication, Demonstrated understanding of instructions, medications, Pt was receptive of discharge instructions/ teaching. Prescriptions given X 2. Property sent home with patient. 13:11 Patient left the ED. kr3 Signatures: Dispatcher [employer] EDMS Jean Lacey, RN RN dwg Kirsten Ventura, Reg Reg gb Yaneli Oseguera, Reg Reg lg Khadra Pa RN RN kr3 Luciana RolonRN RN rs3 Esperanza Mcpherson RN RN hs1 Kathy Mann, JEREMIE PADiane dt4 Isi Kline Nicole nb2 Chart Complete MTDD
--- NOTE | 2016-09-08 14:12 | EDDOCDS ---
Physician Documentation [facility] Name: Ari Aguilera Age: 26 yrs Sex: Male : 1990 Arrival Date: 09/06/2016 Time: 08:52 Bed I2 / M2 Private MD: Disposition: 09/06/16 13:00 Discharged to Home/Self Care. Impression: Left sided colitis with rectal bleeding - DESCENDING/SIGMOID COLON. - Condition is Stable. - Discharge Instructions: Gastrointestinal Bleeding. - Prescriptions for Cipro 500 mg Oral Tablet - take 1 tablet by ORAL route every 12 hours for 10 days; 20 tablet. Flagyl 500 mg Oral Tablet - take 1 tablet by ORAL route every 12 hours for 10 days; 20 tablet. - Medication Reconciliation, Local Pharmacy Hours form. - Follow up: Emergency Department; When: As needed; Reason: Worsening of conditions. Follow up: Jean Vallecillo DO; When: Call to arrange an appointment; Reason: If symptoms return, Recheck today's complaints, Worsening of conditions, Continuance of care, To establish care. - Problem is new. - Symptoms are unchanged. - Notes: PLEASE CALL DR. VALLECILLO'S OFFICE TO FOLLOW UP, ONLY IF YOUR SYMPTOMS CONTINUE OR ARE WORSENING. Historical: - Allergies: No known drug Allergies; - Home Meds: 1. Concerta 54 mg Oral tr24 1 tab once daily 2. Carlota 180 mg Oral tab 1 tab once daily 3. Aleve 220 mg Oral tab as needed (Last dose: 09/03/2016) - PMHx: ADHD; Arthritis; - PSHx: none; - Social history: Smoking status: Patient states was never smoker of tobacco. No barriers to communication noted, The patient speaks fluent Bengali, Speaks appropriately for age. - Family history: Not pertinent. - : The pt / caregiver states he / she is not on anticoagulants. Home medication list is obtained from the patient. - Exposure Risk Screening:: None identified. Vital Signs: 09/06 09:18 BP 144 / 84; Pulse 80; Resp 16; Temp 98.7; Pulse Ox 99% ; Weight 105.23 kg / 231.99 hs1 lbs; Height 5 ft. 7 in. (170.18 cm); Pain 0/10; 13:05 BP 127 / 69; Pulse 92; Resp 18; Temp 98.9(O); Pulse Ox 100% ; Pain 0/10; nb2 09:18 Body Mass Index 36.34 (105.23 kg, 170.18 cm) hs1 MDM: 10:28 Financial registration complete. lg 10:35 IV Saline Lock ordered. dt4 10:36 CT ABD & PELVIS: IV Contrast Only Ordered. EDMS 10:36 CBC with Diff Ordered. EDMS 10:36 Basic Metabolic Profile Ordered. EDMS 10:36 Liver Profile Ordered. EDMS 10:36 Urinalysis Ordered. EDMS 10:36 PT/INR Ordered. EDMS 10:36 PTT Ordered. EDMS 10:52 [facility] [place] Payment Agreement was scanned into [employer] and attached to record. lg 14:58 T-Sheet-- Draft Copy was scanned into [employer] and attached to record. gb 14:59 Radiology Report was scanned into [employer] and attached to record. gb Signatures: Dispatcher [employer] EDMS Kirsten Ventura, Reg Reg gb Yaneli Oseguera, Reg Reg lg Khadra PaRN RN kr3 Esperanza Mcpherson RN RN hs1 Kathy Mann PA-C PADiane dt4 The chart was reviewed and I authenticate all verbal orders and agree with the evaluation and treatment provided.Attachments: 10:52 [facility] Payment Agreement lg 14:58 T-Sheet-- Draft Copy gb Chart Complete MTDD
--- NOTE | 2016-09-08 14:12 | EDDOCDS ---
Physician Documentation [facility] Name: Ari Aguilera Age: 26 yrs Sex: Male : 1990 Arrival Date: 09/06/2016 Time: 08:52 Bed I2 / M2 Private MD: Disposition: 09/06/16 13:00 Discharged to Home/Self Care. Impression: Left sided colitis with rectal bleeding - DESCENDING/SIGMOID COLON. - Condition is Stable. - Discharge Instructions: Gastrointestinal Bleeding. - Prescriptions for Cipro 500 mg Oral Tablet - take 1 tablet by ORAL route every 12 hours for 10 days; 20 tablet. Flagyl 500 mg Oral Tablet - take 1 tablet by ORAL route every 12 hours for 10 days; 20 tablet. - Medication Reconciliation, Local Pharmacy Hours form. - Follow up: Emergency Department; When: As needed; Reason: Worsening of conditions. Follow up: Jean Vallecillo DO; When: Call to arrange an appointment; Reason: If symptoms return, Recheck today's complaints, Worsening of conditions, Continuance of care, To establish care. - Problem is new. - Symptoms are unchanged. - Notes: PLEASE CALL DR. VALLECILLO'S OFFICE TO FOLLOW UP, ONLY IF YOUR SYMPTOMS CONTINUE OR ARE WORSENING. Historical: - Allergies: No known drug Allergies; - Home Meds: 1. Concerta 54 mg Oral tr24 1 tab once daily 2. Carlota 180 mg Oral tab 1 tab once daily 3. Aleve 220 mg Oral tab as needed (Last dose: 09/03/2016) - PMHx: ADHD; Arthritis; - PSHx: none; - Social history: Smoking status: Patient states was never smoker of tobacco. No barriers to communication noted, The patient speaks fluent Lao, Speaks appropriately for age. - Family history: Not pertinent. - : The pt / caregiver states he / she is not on anticoagulants. Home medication list is obtained from the patient. - Exposure Risk Screening:: None identified. Vital Signs: 09/06 09:18 BP 144 / 84; Pulse 80; Resp 16; Temp 98.7; Pulse Ox 99% ; Weight 105.23 kg / 231.99 hs1 lbs; Height 5 ft. 7 in. (170.18 cm); Pain 0/10; 13:05 BP 127 / 69; Pulse 92; Resp 18; Temp 98.9(O); Pulse Ox 100% ; Pain 0/10; nb2 09:18 Body Mass Index 36.34 (105.23 kg, 170.18 cm) hs1 MDM: 10:28 Financial registration complete. lg 10:35 IV Saline Lock ordered. dt4 10:36 CT ABD & PELVIS: IV Contrast Only Ordered. EDMS 10:36 CBC with Diff Ordered. EDMS 10:36 Basic Metabolic Profile Ordered. EDMS 10:36 Liver Profile Ordered. EDMS 10:36 Urinalysis Ordered. EDMS 10:36 PT/INR Ordered. EDMS 10:36 PTT Ordered. EDMS 10:52 [facility] Payment Agreement was scanned into [employer] and attached to record. lg 14:58 T-Sheet-- Draft Copy was scanned into [employer] and attached to record. gb 14:59 Radiology Report was scanned into [employer] and attached to record. gb Signatures: Dispatcher [employer] EDMS Kirsten Ventura, Reg Reg gb Yaneli Oseguera, Reg Reg lg Khadra PaRN RN kr3 Esperanza Mcpherson RN RN hs1 Kathy Mann PA-C PADiane dt4 The chart was reviewed and I authenticate all verbal orders and agree with the evaluation and treatment provided.Attachments: 10:52 [facility] Payment Agreement lg 14:58 T-Sheet-- Draft Copy gb Chart Complete MTDD
== END 2016-09-06 13:11 | disposition home or self-care (01) ==
LOC: M ED 08:52
DX: K62.5 Hemorrhage of anus and rectum (principal); F90.9 Attention-deficit hyperactivity disorder, unspecified type; M19.90 Unspecified osteoarthritis, unspecified site; Z79.899 Other long term (current) drug therapy
CPT/HCPCS: 36415; 74177; 80048; 80076; 81001; 85025; 85610; 85730; 99284; Q9967

== ENCOUNTER → 2016-12-12 | Outpatient (CLI) | payer BC ==
[~2016-12-12] VITALS: Ht 170.2 cm; Wt 106.1 kg
[~2016-12-12] MED LIST: ALLE24TA8 PO; CONC54TA4 PO; NS 1,000 ML IV ONE; PROPOFOL 200 MG/20 ML VIAL As Ordered ONE
--- NOTE | 2016-12-12 09:20 | ROOR ---
Patient Name: Ari Aguilera Procedure Date: 12/12/2016 9:03 AM Date of : 1990 Age: 26 Room: [facility] Gender: Male Note Status: Finalized Procedure: Colonoscopy Indications: Abnormal CT of the GI tract Providers: DO Jorge Travis MD: CIRILO Frank Requesting Provider: Medicines: Propofol per Anesthesia Complications: No immediate complications. Procedure: Pre-Anesthesia Assessment: - Prior to the procedure, a History and Physical was performed, and patient medications and allergies were reviewed. The patient is competent. The risks and benefits of the procedure and the sedation options and risks were discussed with the patient. All questions were answered and informed consent was obtained. Patient identification and proposed procedure were verified by the physician, the nurse, the anesthesiologist and the ergonomics technician in the endoscopy suite. Mental Status Examination: alert and oriented. Airway Examination: normal oropharyngeal airway and neck mobility. Respiratory Examination: clear to auscultation. CV Examination: normal. Prophylactic Antibiotics: The patient does not require prophylactic antibiotics. Prior Anticoagulants: The patient has taken no previous anticoagulant or antiplatelet agents. ASA Grade Assessment: I - A normal, healthy patient. After reviewing the risks and benefits, the patient was deemed in satisfactory condition to undergo the procedure. The anesthesia plan was to use monitored anesthesia care (MAC). Immediately prior to administration of medications, the patient was re-assessed for adequacy to receive sedatives. The heart rate, respiratory rate, oxygen saturations, blood pressure, adequacy of pulmonary ventilation, and response to care were monitored throughout the procedure. The physical status of the patient was re-assessed after the procedure. The Colonoscope was introduced through the anus and advanced to the cecum, identified by the appendiceal orifice, ileocecal valve and palpation. The colonoscopy was performed without difficulty. The patient tolerated the procedure well. Findings: The entire examined colon appeared normal on direct and retroflexion views. Impression: - The entire examined colon is normal on direct and retroflexion views. - No specimens collected. Recommendation: - Patient has a contact number available for emergencies. The signs and symptoms of potential delayed complications were discussed with the patient. Return to normal activities tomorrow. Written discharge instructions were provided to the patient. - Repeat colonoscopy at age 50 for screening purposes. - Return to my office PRN. Jean Vallecillo DO 12/12/2016 9:19:53 AM This report has been signed electronically. Number of Addenda: 0 Note Initiated On: 12/12/2016 9:03 AM Estimated Blood Loss: Estimated blood loss: none.
[2016-12-12 09:44] VITALS: BP 157/80
== END | disposition home or self-care (01) ==
LOC: M OPP 08:25
PROVIDERS: ATTEND Surgery
DX: R93.3 Abnormal findings on diagnostic imaging of other parts of digestive tract (principal); K52.9 Noninfective gastroenteritis and colitis, unspecified; K38.1 Appendicular concretions; M19.90 Unspecified osteoarthritis, unspecified site; F90.9 Attention-deficit hyperactivity disorder, unspecified type; Z79.899 Other long term (current) drug therapy

== ENCOUNTER → 2017-05-02 | Outpatient (REF) | payer BC ==
[~2017-05-02] MED LIST changes: -NS 1,000 ML IV ONE; -PROPOFOL 200 MG/20 ML VIAL As Ordered ONE
[2017-05-02 12:47] LABS: BASO # 0.1 10^3/uL (0.0-0.2); EOS # 0.2 10^3/uL (0.0-0.50); EOS % 2.7 % (0.0-3.0); IMMATURE GRANULOCYTE % 0.7 % (0-0); LYMPH # 1.5 10^3/uL (1.5-6.5); LYMPH % 25.7 % (24.0-44.0); MEAN CORPUSCULAR HEMOGLOBIN 31.3 pg (27.0-33.0); MEAN CORPUSCULAR HGB CONC 32.8 g/dl (32.0-36.5); MEAN CORPUSCULAR VOLUME 95.6 fl (80.0-96.0); MONO # 0.6 10^3/uL (0.0-0.8); MONO % 9.2 % (0.0-5.0); NEUTROPHILS # 3.6 10^3/uL (1.8-7.7); NEUTROPHILS % 60.7 % (36.0-66.0); PLATELET COUNT, AUTOMATED 294 10^3/uL (150-450); RED CELL DISTRIBUTION WIDTH 12.8 % (11.5-14.5)
[2017-05-02 13:39] LABS: ALBUMIN/GLOBULIN RATIO 1.25 (1.00-1.93); ALKALINE PHOSPHATASE 69 U/L (45-117); ALT/SGPT 27 U/L (12-78); ANION GAP 7 MEQ/L (8-16); AST/SGOT 13 U/L (15-37); BILIRUBIN,TOTAL 0.4 MG/DL (0.2-1.0); BLOOD UREA NITROGEN 19 MG/DL (7-18); CALCIUM LEVEL 9.3 MG/DL (8.5-10.1); CARBON DIOXIDE LEVEL 32 MEQ/L (21-32); CHLORIDE LEVEL 102 MEQ/L (98-107); CHOLESTEROL LEVEL 160 MG/DL (<200); CREATININE FOR GFR 0.73 MG/DL (0.70-1.30); GLOMERULAR FILTRATION RATE > 60.0 (>60); GLUCOSE, FASTING 79 MG/DL (70-105); POTASSIUM SERUM 4.4 MEQ/L (3.5-5.1); SODIUM LEVEL 141 MEQ/L (136-145); TOTAL PROTEIN 7.2 GM/DL (6.4-8.2); TRIGLYCERIDES LEVEL 74 MG/DL (<150)
== END ==
LOC: M SFHCPLAZ 05-01 08:11
PROVIDERS: ATTEND Physician Assistant
DX: F90.9 Attention-deficit hyperactivity disorder, unspecified type (principal); Z13.220 Encounter for screening for lipoid disorders

== ENCOUNTER → 2017-10-26 | Outpatient (REF) | payer BC ==
[2017-10-28 13:46] LABS: INFLUENZA A AMPLIFICATION NEGATIVE (NEGATIVE); INFLUENZA B AMPLIFICATION NEGATIVE (NEGATIVE)
== END ==
LOC: M LAB REF 10:04
DX: Z11.59 Encounter for screening for other viral diseases (principal)
CPT/HCPCS: 87502

== ENCOUNTER → 2017-11-07 | Outpatient (CLI) | payer BC ==
[2017-11-07 14:00] LABS: ESTIMATED AVERAGE GLUCOSE 105 MG/DL (60-110); HEMOGLOBIN A1c 5.3 %
== END ==
LOC: M WUC 09:41
DX: E66.9 Obesity, unspecified (principal)
CPT/HCPCS: 83036

== ENCOUNTER → 2018-02-20 | Outpatient (REF) | payer BC ==
[2018-02-20 12:46] LABS: OSMOLALITY URINE 712 MOSM/KG (500-800)
[2018-02-20 13:06] LABS: ANION GAP 5 MEQ/L (8-16); BLOOD UREA NITROGEN 14 MG/DL (7-18); CALCIUM LEVEL 9.2 MG/DL (8.5-10.1); CARBON DIOXIDE LEVEL 30 MEQ/L (21-32); CHLORIDE LEVEL 108 MEQ/L (98-107); CREATININE FOR GFR 0.73 MG/DL (0.70-1.30); GLOMERULAR FILTRATION RATE > 60.0 (>60); GLUCOSE, FASTING 77 MG/DL (70-100); POTASSIUM SERUM 4.5 MEQ/L (3.5-5.1); SODIUM LEVEL 143 MEQ/L (136-145)
== END ==
LOC: M SFHCPLAZ 10:10
DX: R35.1 Nocturia (principal)
CPT/HCPCS: 83935